=== PATIENT | male | born 1945 | race Caucasian/White ===

== ENCOUNTER 2020-07-02 10:14 | Outpatient (CLI) | payer OTHER ==
[~2020-07-02 10:14] MED LIST: ATROVEN MC; CATAFLAM50 MG PO; CEFADROXIL500 MG PO; CLARITIN10 M1 PO; GABAPENTIN600 MG PO; LUMIGAN OP; MEDROL4 MG PO; PERCOCET 5/3251 TAB PO; RESTORIL30 M1 PO; SINGULAIR10 MG PO; SYNTHROID50 MCG PO; XARELTO10 MG PO; [UNRECOGNIZED DRUG - OTHER] IJ; [UNRECOGNIZED DRUG - OTHER] PO
== END 2020-07-02 10:22 | disposition home or self-care (01) ==
LOC: SONOGRAMA 10:14
PROVIDERS: ATTEND Pathology Anatomic Pathology & Clinical Pathology
DX: D34 Benign neoplasm of thyroid gland (principal); E04.8 Other specified nontoxic goiter